=== PATIENT | male | born 1985 | race Caucasian/White ===

== ENCOUNTER 2024-10-08 18:35 | Emergency (ER) | payer MEDICAID, SELFPAY ==
[2024-10-08 19:18] VITALS: BP 128/78; PULSE 63; RESP 18; TEMP 37; O2SAT 98; BMI 28.0
--- NOTE | 2024-10-08 19:28 | EDRME_ITS ---
Rapid Medical Screening Exam [facility] Arrival date/time: 10/08/24 18:35 39M with history of asthma presents to ED with food bolus stuck in throat. Patient is unable to swallow or drink fluids. This has never happened before. Chief Complaint: Dental/Oral/Throat Vital signs: Vital Signs Temperature 98.6 F 10/08/24 19:18 Pulse Rate 63 10/08/24 19:18 Respiratory Rate 18 10/08/24 19:18 Blood Pressure 128/78 10/08/24 19:18 Pulse Oximetry (%) 98 10/08/24 19:18 Oxygen Delivery Method Room Air 10/08/24 19:18
--- NOTE | 2024-10-08 19:28 | XR_ITS ---
Examination: AP lateral soft tissue neck 2 views Technique one AP lateral soft tissue neck 2 views Exam date and time: October 08, 20242012 hrs. Indications: Difficulty swallowing today. Findings: No opaque foreign body No prevertebral soft tissue prominence or distention of the hypopharynx Epiglottis is not optimally visualized Impression: No opaque foreign body visualized
[2024-10-08 21:12] VITALS: BP 124/85; PULSE 60; RESP 16; TEMP 36.6; O2SAT 96
--- NOTE | 2024-10-08 21:18 | EDNOTE_ITS ---
ED Dental RME/HPI General Chief complaint: Dental/Oral/Throat Stated complaint: SOMETHING STUCK IN THROAT Time Seen by Provider: 10/08/24 21:15 Arrival date/time: 10/08/24 18:35 RME / HPI RME / HPI Narrative: 39-year-old male patient with significant history of asthma, came in for evaluation regarding a possible food stuck in his throat. Onset of symptoms few minutes prior to ER visit. Patient told me that he is unable to swallow or drink fluids. Denies any similar episode in the past. Denies any vomiting denies any gagging denies any other complaints. Related Data Previous Rx's ?Medication ?Instructions ?Recorded hydrocodone 5 mg-acetaminophen 325 1 tab PO BID PRN pain #10 tabs 11/14/21 mg tablet ibuprofen 800 mg tablet 800 mg PO TID PRN pain #30 tabs 11/14/21 Allergies Allergy/AdvReac Type Severity Reaction Status Date / Time loratadine Allergy Unknown Hives Verified 10/08/24 18:37 pseudoephedrine Allergy Unknown ITCHING Verified 10/08/24 18:37 Review of Systems Review of Systems Narrative Review of Systems: Review of system reviewed and within normal limits except mentioned in HPI ED Exam Narrative Physical exam: VITAL SIGNS: Reviewed. GENERAL APPEARANCE: Alert and interactive, follows commands, no acute distress, HEAD AND FACE: Non-traumatic. ENT: PERRL, pink conjunctivitis, eyelid no trauma, Mucous membrane moist. NECK: Supple, nontender, no nuchal rigidity. CHEST: No tenderness, no crepitus, no paradoxical movement, no retractions. LUNGS: Clear, well ventilated, symmetric, no rales, no wheezing, no ronchi, no stridor, good breath sounds bilaterally. HEART: Regular rate, regular rhythm, no murmur, no gallops. ABDOMEN: Soft, positive bowel sounds, nondistended, no guarding, nontender, no rebound, no masses, RECTAL: Deferred. GENITAL: Deferred. NEUROLOGICAL: Gross motor function intact sensory function intact, Appropriate for age. MUSCULOSKELETAL: low back nontender, full range of motion. EXTREMITIES: Nontender, full range of motion. SKIN: Color pink, dry, no rash, no lacerations, no abrasions, no contusions. LYMPHATICS: Deferred. Course Quality Measures none Orders Category Date Time Status Blood glucose [Bedside Blood Glucose] NOW Care 10/08/24 19:28 Active XR soft tissue neck Stat Exams 10/08/24 19:28 Taken Glucagon Inj Med 10/08/24 19:28 Discontinued 1 mg IM X1 ONE Vital Signs Vital signs: Vital Signs Temperature 98.6 F 10/08/24 19:18 Pulse Rate 63 10/08/24 19:18 Respiratory Rate 18 10/08/24 19:18 Blood Pressure 128/78 10/08/24 19:18 Pulse Oximetry (%) 98 10/08/24 19:18 Oxygen Delivery Method Room Air 10/08/24 19:18 Dental / Oral MDM Narrative MDM Narrative:: While waiting in the triage, patient was able to feel that the food is going down. Was able to drink liquid without any problem. X-ray of the soft tissue neck, came back unremarkable. Patient was advised to chew the food really good prior to swallowing. Patient data External records reviewed:: None Clinical information provided by:: patient Social determinants that could affect healthcare access:: none Patient has the following chronic illnesses:: asthma How is presenting disease/condition affected by chronic disease/condition?: uneffected by Evaluation data The following diagnostics were reviewed and interpreted by me:: radiology exam(s) Lab and/or radiology exams considered but not ordered:: None Interpretation Summary: X-ray of the soft tissue neck, came back unremarkable. Medications / Prescriptions Medications or Prescriptions considered but not ordered:: None Medication administrations:: Medication Administration History Discontinued Medications Glucagon (Glucagon Inj 1 Mg Vial) 1 mg IM X1 ONE Stop: 10/08/24 19:29 Glucagon was not given since patient spontaneously have complete resolution of foreign body sensation. Consultations Consultation(s) initiated? (list below): No Diagnosis Dental Differential Diagnosis: other (Foreign body sensation esophagus foreign body sensation throat, anxiety) Most likely diagnosis given after review of the tests above:: Foreign body sensation in esophagus Admission Indicated Admission indicated?: not indicated Admission Request Was there a request for admission?: No Disposition Plan Disposition Plan: Discharge Discharge Attestation Discharge Attestation: The patient and all family members were given an opportunity to ask questions and understood the discharge instructions. Discharge instructions specifically effects, indications for sooner follow up or return to the emergency department, and the expected course of current diagnosis. Patient condition: Stable Discharge Plan Plan Patient Disposition: HOME (Self Care) Disposition Comment: Stable Prescriptions/Referrals Prescriptions/Med Rec: No Action ibuprofen 800 mg tablet 800 mg PO TID PRN (Reason: pain) Qty: 30 0RF hydrocodone-acetaminophen 5-325 mg tablet 1 tab PO BID MDD 10 PRN (Reason: pain) Qty: 10 0RF Referrals: Brooke Floyd FNP [Primary Care Provider] - In 1 week Problem List Clinical Impression: Sensation of foreign body in esophagus Patient/Caregiver Discharge Instructions Discharge Activity: activity as tolerated Education Materials: Dysphagia: Exercises Additional Instructions: Thank you for the opportunity for serving you today. You are stable for discharged . You are advised to: Follow-up with your PCP in 1 to 2 days Return to ED for worsening of symptoms Increase oral fluids Make sure you chew your food well before swallowing Print Language: Kiswahili Stand Alone Forms: Shasha Award Info., Patient Portal Info Letter JOSETTE/ROHAN Supervising Physician JOSETTE/ROHAN Supervising Physician: MD Hugo
== END 2024-10-08 21:27 | disposition home or self-care (01) ==
PROVIDERS: Emergency Provider Emergency Medicine; PCP Nurse Practitioner Family
DX: R09.A2 Foreign body sensation, throat (principal)
CPT/HCPCS: 70360; 99283

== ENCOUNTER 2024-10-09 22:30 | Emergency (ER) | payer MEDICAID, SELFPAY ==
--- NOTE | 2024-10-09 22:35 | EDNOTE_ITS ---
ED Headache RME/HPI General Chief Complaint: Headache Stated Complaint: FACE PAIN Time Seen by Provider: 10/09/24 22:35 Arrival date/time: 10/09/24 22:30 RME / HPI RME / HPI Narrative: This section includes all my notes and documentations, including HPI, PE, and ED course. Dwaine Luis MD HPI: 39yo male accompanied by his friend presents to the ED for a chief complaint of right ear pain since yesterday. Patient states he was driving down from [place] yesterday when he was coming to the ED for a different complaint, reporting he developed sudden, severe right ear pain. Patient states he's since had loss of hearing to his right ear and intermittent loss of hearing in his left. He denies any other associated symptoms. No other complaints reported. ROS: All negative except as documented in HPI. Physical Exam: General: Alert and oriented. No acute distress when remaining still. Eyes: Conjunctivae and lids clear. ENT: No nasal congestion. Right eardrum is ruptured. Neck: Supple. Heart: RRR. Lungs: No respiratory distress. Good air movement. No rhonchi, wheezing, rales. Abdomen: Soft and nontender. Skin: Warm and dry. Neuro: Alert and oriented X 3. No diagnostic tests are indicated at this time. At this point, diagnoses include right TM rupture. Treatment here included Tylenol with codeine. Recommended more outpatient ENT care. Based on my best medical judgment, made decision no further evaluation or treatment indicated at this time. Patient understands and agrees to the discharge instructions customized and printed, see below. Discharge Instructions from Dr. Luis printed for you: 1. After exam, your right eardrum ruptured. Probably from sudden pressure [place] 2. It should heal in a month. 3. Ibuprofen and Tylenol with codeine for pain. 4. See a private doctor on 09/30/2024. Ask for a referral to see ENT specialist. 5. Seek immediate medical care with worsening or with any concerns. Dwaine Luis MD Related Data Previous Rx's ?Medication ?Instructions ?Recorded hydrocodone 5 mg-acetaminophen 325 1 tab PO BID PRN pain #10 tabs 11/14/21 mg tablet ibuprofen 800 mg tablet 800 mg PO TID PRN pain #30 tabs 11/14/21 acetaminophen 300 mg-codeine 30 mg 2 tab PO TID PRN pain #20 tabs 10/09/24 tablet Allergies Allergy/AdvReac Type Severity Reaction Status Date / Time loratadine Allergy Unknown Hives Verified 10/08/24 18:37 pseudoephedrine Allergy Unknown ITCHING Verified 10/08/24 18:37 Review of Systems Review of Systems Systems Reviewed: All systems reviewed, normal except as documented Past Medical History Past Medical History CARDIAC: Negative Cardiac Disorders or Congestive Heart Failure RESPIRATORY: Positive Chronic Obstructive Pulmonary Disease (COPD) and Asthma GENITOURINARY: Negative Renal Disease ENDOCRINE: Negative Diabetes Mellitus Type 1 or Diabetes Mellitus Type 2 HEMATOLOGIC: Negative Sickle Cell Disease Social History SMOKING STATUS: Light (< 1 pack/day) ED Exam Narrative Physical exam: As noted in HPI. Course Quality Measures none Orders Category Date Time Status ACETAMINOPHEN w/COD 300-30 [Tylenol w/Cod #3] Med 10/09/24 22:43 Discontinued 2 tab PO X1 ONE Vital Signs Vital signs: Vital Signs Temperature 97.6 F 10/09/24 22:39 Pulse Rate 84 10/09/24 22:39 Respiratory Rate 20 10/09/24 22:39 Blood Pressure 142/96 H 10/09/24 22:39 Pulse Oximetry (%) 98 10/09/24 22:39 Oxygen Delivery Method Room Air 10/09/24 22:39 Headache MDM Narrative MDM Narrative:: Scribe Attestation: 10/09/24 Davida Mason am scribing for and in the presence of Dr. Luis. Patient data External records reviewed:: [facility] previous records (Per chart review, patient was seen here yesterday for a foreign body in the esophagus.) Clinical information provided by:: patient and family Social determinants that could affect healthcare access:: none Patient has the following chronic illnesses:: COPD, asthma How is presenting disease/condition affected by chronic disease/condition?: uneffected by Evaluation data The following diagnostics were reviewed and interpreted by me:: other (specify) (none) Lab and/or radiology exams considered but not ordered:: none Interpretation Summary: none Medications / Prescriptions Medications or Prescriptions considered but not ordered:: none Medication administrations:: Medication Administration History Discontinued Medications Acetaminophen/Codeine Phosphate (Acetaminophen W/Cod 300-30 Tablet) 2 tab PO X1 ONE Stop: 10/09/24 22:44 two Tylenol #3 Consultations Consultation(s) initiated? (list below): No Diagnosis Differential diagnosis headache: other (ruptured eardrum, otitis media, eustachian tube dysfunction) Most likely diagnosis given after review of the tests above:: ruptured eardrum, right Admission Indicated Admission indicated?: not indicated Explain why admission is indicated or not indicated:: Admission criteria not met Admission Request Was there a request for admission?: No Disposition Plan Disposition Plan: Discharge Discharge Attestation Discharge Attestation: The patient and all family members were given an opportunity to ask questions and understood the discharge instructions. Discharge instructions specifically effects, indications for sooner follow up or return to the emergency department, and the expected course of current diagnosis. Patient condition: Stable Discharge Plan Plan Patient Disposition: HOME (Self Care) Prescriptions/Referrals Prescriptions/Med Rec: New acetaminophen-codeine 300-30 mg tablet 2 tab PO TID MDD 6 PRN (Reason: pain) Qty: 20 0RF No Action ibuprofen 800 mg tablet 800 mg PO TID PRN (Reason: pain) Qty: 30 0RF hydrocodone-acetaminophen 5-325 mg tablet 1 tab PO BID MDD 10 PRN (Reason: pain) Qty: 10 0RF Problem List Clinical Impression: Eardrum rupture, right Patient/Caregiver Discharge Instructions Discharge Activity: activity as tolerated Education Materials: ED PERFORATED TM Infected [Adult] Additional Instructions: Discharge Instructions from Dr. Luis printed for you: 1. After exam, your right eardrum ruptured. Probably from [place] 2. It should heal in a month. 3. Ibuprofen and Tylenol with codeine for pain. 4. See a private doctor on 09/30/2024. Ask for a referral to see ENT specialist. 5. Seek immediate medical care with worsening or with any concerns. Print Language: Cameroonian Stand Alone Forms: Shasha Award Info., Patient Portal Info Letter
[2024-10-09 22:39] VITALS: BP 142/96; PULSE 84; RESP 20; TEMP 36.4; O2SAT 98; BMI 24.2
[2024-10-09] MEDS: ACETAMINOPHEN w/COD 300-30 TABLET 2 TAB PO (23:05)
[2024-10-09 23:08] VITALS: BP 123/81; PULSE 83; RESP 16; TEMP 36.7; O2SAT 98
== END 2024-10-09 23:12 | disposition home or self-care (01) ==
LOC: SERX 23:18
PROVIDERS: Emergency Provider Emergency Medicine
DX: H72.91 Unspecified perforation of tympanic membrane, right ear (principal)
CPT/HCPCS: 99282; A9270

== ENCOUNTER 2025-01-10 10:32 | Emergency (ER) | payer MEDICAID, SELFPAY ==
[2025-01-10 10:32] VITALS: BMI 23.5
[2025-01-10 10:53] VITALS: BP 123/80; PULSE 65; RESP 16; TEMP 37.1; O2SAT 96; BMI 23.5
--- NOTE | 2025-01-10 11:03 | XR_ITS ---
Examination: PA lateral chest 2 views TECHNIQUE: Upright PA lateral chest 2 views Exam date and time: 07/03/2025 1117 hours INDICATIONS: Onset shortness of breath left-sided rib pain beginning 2 weeks ago FINDINGS: Normal heart size No pneumonia or pneumothorax No hemothorax Clavicles ribs appear intact IMPRESSION: No active disease
--- NOTE | 2025-01-10 11:03 | EKG_ITS ---
[facility] Test Date: 2025-01-10 Pat Name: JERRICA WILSON Department: Room: - Gender: Male [place]: : 1985 Requested By: Dimas Linn (MILLICENT) Order Number: [id number] Reading MD: Dimas Linn (MILLICENT) Measurements Intervals [place] Rate: 64 P: 37 IN: 164 QRS: 52 QRSD: 111 T: 52 QT: 364 QTc: 378 Interpretive Statements SINUS RHYTHM POSSIBLE RIGHT VENTRICULAR CONDUCTION DELAY [RSR (QR) IN V1/V2] No previous ECG available for comparison /store/S0/[id number].pdf
--- NOTE | 2025-01-10 11:04 | PD.EDRME ---
Rapid Medical Screening Exam E Arrival date/time: 01/10/25 10:32 39-year-old male presents the emergency department complaints of shortness of breath and chest pain Chief Complaint: Chest Pain Vital signs: Vital Signs Temperature 98.8 F 01/10/25 10:53 Pulse Rate 65 01/10/25 10:53 Respiratory Rate 16 01/10/25 10:53 Blood Pressure 123/80 01/10/25 10:53 Pulse Oximetry (%) 96 01/10/25 10:53
--- NOTE | 2025-01-10 11:59 | EDNOTE_ITS ---
ED Chest Pain RME/HPI General Chief Complaint: Chest Pain Stated Complaint: LEFT CHEST PAIN WITH PAINFUL BREATHING Time Seen by Provider: 01/10/25 11:58 Arrival date/time: 01/10/25 10:32 39 year old male present to emergency room with c/o of left chest pain with painful shortness of breath for 2 weeks . pt report hitting chest on steering wheel. Patient denies any significant past medical history, or illicit drug/alcohol abuse. LOCATION: Chest SEVERITY: Symptoms are described as being severe with limitations on activities of daily living CONTEXT: The patient is unable to identify any inciting events. DURATION/TIMING: The symptoms started approximately 14 days ago and have been constant since and have been progressive getting worse. ASSOCIATED SYMPTOMS: The patient is unable to identify any other associated symptoms. MODIFYING FACTORS: The patient is unable to identify any alleviating or aggr avating symptoms. PERTINENT ROS: no fevers, no cough, no pleuritic pain, no ripping or tearing sensations, denies any lower extremity edema and no unilateral swelling, no nausea,vomiting, diarrhea, no dizziness/headache no rash no loc/syncope episode no abd/back pain no dsyuria,urgency,frequency REVIEW OF SYSTEMS: See History of Present Illness - with the exception of those mentioned in the history of present illness, all other systems reviewed and reported as negative GENERAL: In general the patient is awake, interactive, in an emergency department gurney. HEAD/EYES/EARS/NOSE/THROAT: normo-cephalic, atraumatic, mucus membranes are moist, anicteric, palpebral conjunctiva is pink, trachea is midline. CARDIOVASCULAR: regular rate and regular rhythm, no murmurs, heart sounds are not distant, strong pulses in all four extremities that are equal and symmetric bilateral upper and lower extremities, normal capillary refill. CHEST/PULMONARY: normal chest rise and fall, good air movement, clear to auscultation bilaterally, normal inspiratory to expiratory ratios without evidence of respiratory distress. NECK: No midline/Paraspinal tenderness, no step off ROM/Strenght intact No Kernig and bruzinski sign. No trauma ABDOMEN: soft, not tender, no masses appreciated BACK: normal range of motion without pain. NEUROLOGICAL: cranio-facial features are symmetric, moves all four extremities equally without obvious limitations or weakness. EXTREMITY: no tenderness to palpation over the long bones or large joints of the bilateral upper and lower extremities, no joint swelling, no joint erythema, no signs of trauma, no unilateral leg swelling and no peripheral edema. SKIN: warm, dry, well-perfused, no jaundice, no rash, no telangiectasias or petechia. PSYCH: calm, cooperative, no evidence of psychosis or agitation RME / HPI RME / HPI narrative: 01/10/25 10:32 39-year-old male presents the emergency department complaints of shortness of breath and chest pain Related Data Previous Rx's ?Medication ?Instructions ?Recorded hydrocodone 5 mg-acetaminophen 325 1 tab PO BID PRN pa in #10 tabs 11/14/21 mg tablet ibuprofen 800 mg tablet 800 mg PO TID PRN pain #30 t abs 11/14/21 acetaminophen 300 mg-codeine 30 mg 2 tab PO TID PRN pa in #20 tabs 10/09/24 tablet Allergies Allergy/AdvReac Type Severity Reaction Status Date / Time loratadine Allergy Unknown Hives Verified 01/10/25 10:34 pseudoephedrine Allergy Unknown ITCHING Verified 01/10/25 10:34 Course Course Course Narrative: The patient presents with complaints of chest pain and shortness of breath. The patient denies a prior history of cardiac disease and reports no drug abuse. The presentation is concerning for potential cardiac or pulmonary pathology, but given the lack of significant past medical history and normal initial workup, other etiologies must be considered. A thorough physical examination was conducted, focusing on the chest, heart, and lungs. Initial diagnostic tests, including a complete set of labs, an electrocardiogram (EKG), and a chest X-ray, were all normal. Given these results, serious cardiac and pulmonary causes, such as acute myocardial infarction, pulmonary embolism, or significant pneumothorax, are less likely at this time. The patient?s symptoms could be related to musculoskeletal pain, gastrointest inal issues (e.g., gastroesophageal reflux disease), or anxiety/stress-related factors. Although the initial workup is reassuring, it is essential to continue to monitor the patient closely for any changes in symptoms. Plan: * Reassure the patient that initial cardiac and pulmonary concerns have been largely excluded. * HEART SCORE: 1, PERC Negative? * Recommend follow-up with their primary care provider or a specialist for further evaluation, especially if symptoms persist or worsen. * Symptom management as appropriate (e.g., anti-reflux medications or analgesics if musculoskeletal in origin). * Advise the patient to seek immediate care if symptoms change significantly, including any new or worsening chest pain, shortness of breath, or associated signs of instability. Quality Measures none Orders Category Date Time Status CT Screening NOW Care 01/10/25 13:20 Active EKG (ED ONLY) *Do not use* NOW Care 01/10/25 11:[address] angio chest Stat Exams 01/10/25 13:20 Completed EKG (ED Only) Stat Exams 01/10/25 11:03 Draft XR chest 2V Stat Exams 01/10/25 11:03 Completed CBC Stat Lab 01/10/25 11:34 Completed Comprehensive Metabolic Panel Stat Lab 01/10/25 11:34 Completed Troponin I Stat Lab 01/10/25 11:34 Completed Reevaluation(s) Reevaluation #1: pt is feeling better Vital Signs Vital signs: Vital Signs Temperature 98.8 F 01/10/25 10:53 Pulse Rate 65 01/10/25 10:53 Respiratory Rate 16 01/10/25 10:53 Blood Pressure 123/80 01/10/25 10:53 Pulse Oximetry (%) 96 01/10/25 10:53 Procedures -ED EKG Interpretation #1: Date of EK01/10/25 Rate: 64 Interpretation: Reviewed by me EKG Impression: Normal sinus rhythm, No acute ST-T changes, No ectopy, No ischemic changes, Normal QRS and Normal intervals Chest Pain Patient data External records reviewed:: [facility] previous records Clinical information provided by:: patient Social determinants that could affect healthcare access:: none Patient has the following chronic illnesses:: n/a How is presenting disease/condition affected by chronic disease/condition?: no chronic disease Evaluation data The following diagnostics were reviewed and interpreted by me:: lab results, radiology exam(s) and EKG tracing(s) Lab and/or radiology exams considered but not ordered:: n/a Interpretation Summary: cbc: No elevated wbc no anemia no shift cmp: no dehydration on renal/liver failure Trop: Negative CXR:Normal heart size No pneumonia or pneumothorax No hemothorax Clavicles ribs appear intact IMPRESSION: No active disease CTA: No thoracic aortic aneurysmal dilatation Pulmonary artery segments are not enlarged No pulmonary artery filling defects No paratracheal tracheobronchial or bronchopulmonary adenopathy No pneumonia, pulmonary edema or pleural disease No visualized liver or splenic lesion No gallstones No pancreatic or adrenal mass IMPRESSION: Negative for pulmonary artery emboli No mediastinal lymphadenopathy No pneumonia or pulmonary edema or pleural disease Medications / Prescriptions Medications or Prescriptions considered but not ordered:: n/a Medication administrations:: n/a Consultations Consultation(s) initiated? (list below): No Diagnosis Chest Pain Differential Diagnosis: fracture of rib, pneumothorax, atypical chest pain, st elevation myocardial infarction, costochondritis, chest pain and other (PE, anxiety, muscular/contusion ) Most likely diagnosis given after review of the tests above:: chest wall pain Admission Indicated Admission indicated?: not indicated Admission Request Was there a request for admission?: No Disposition Plan Disposition Plan: Discharge Discharge Attestation Discharge Attestation: The patient and all family members were given an opportunity to ask questions and understood the discharge instructions. Discharge instructions specifically effects, indications for sooner follow up or return to the emergency department, and the expected course of current diagnosis. Patient condition: Stable Discharge Plan Plan Patient Disposition: HOME (Self Care) Health Concerns: Follow with PMD as directed Take tylenol or motrin as need Return to ED if sx worsen Prescriptions/Referrals Prescriptions/Med Rec: No Action ibuprofen 800 mg tablet 800 mg PO TID PRN (Reason: pain) Qty: 30 0RF hydrocodone-acetaminophen 5-325 mg tablet 1 tab PO BID MDD 10 PRN (Reason: pain) Qty: 10 0RF acetaminophen-codeine 300-30 mg tablet 2 tab PO TID MDD 6 PRN (Reason: pain) Qty: 20 0RF Referrals: No Primary/Family,Physician [Primary Care Provider] - In 1 week Problem List Clinical Impression: Chest pain Patient/Caregiver Discharge Instructions Education Materials: ED Chest Pain, Uncertain Cause Print Language: Welsh Stand Alone Forms: Shasha Award Info., Patient Portal Info Letter
[2025-01-10 12:05] LABS: Basophils % (Auto) 0 % (0-2.5); Eosinophils # (Auto) 0.1 Thou/mm3 (0.0-0.5); Eosinophils % (Auto) 1 % (0-10); Hemoglobin 16.1 g/dL (13.5-16.0); Immature Granulocytes % (Auto) 0 % (0-0); Immature Granulocytes Auto 0.03 Thou/mm3 (0.00-0.00); Lymphocytes # (Auto) 2.6 Thou/mm3 (1.0-4.8); Lymphocytes % (Auto) 25 % (10-50); Mean Corpuscular HGB Conc 35.8 g/dl (31.0-37.0); Mean Corpuscular Hemoglobin 31.3 pg (25.0-35.0); Mean Corpuscular Volume 87 fL (80-100); Monocytes # (Auto) 0.6 Thou/mm3 (0.0-0.8); Monocytes % (Auto) 5 % (0-12); Neutrophils # (Auto) 6.8 Thou/mm3 (1.8-7.7); Neutrophils % (Auto) 68 % (37-80); Nucleated Red Blood Cell % 0 /100 WBC (0); Platelet Count 332 Thou/mm3 (140-440); RDW Standard Deviation 39.9 fL (35.1-43.9); Red Blood Count 5.15 Miln/mm3 (4.50-5.90); White Blood Count 10.1 Thou/mm3 (3.8-10.6)
[2025-01-10 12:38] LABS: Alanine Aminotransferase 26 U/L (10-49); Albumin, Serum 4.9 gm/dL (3.5-5.0); Albumin/Globulin Ratio 2.1 (1.2-2.2); Alkaline Phosphatase 77 U/L (46-116); Anion Gap 9 (7-16); Aspartate Amino Transferase 25 U/L (0-34); BUN/Creatinine Ratio 11 Ratio (12-20); Bilirubin,Total 0.7 mg/dL (0.3-1.2); Blood Urea Nitrogen 11 mg/dL (9-23); Calcium 10.6 mg/dL (8.3-10.6); Calcium (Corrected) 10.6 mg/dL (8.5-10.1); Carbon Dioxide 27.2 mMol/L (20.0-31.0); Chloride 106 mMol/L (98-107); Estimated Creatinine Clearance 91.8 mL/min (>60); Globulin 2.3 gm/dL (2.3-3.5); Glucose 72 mg/dL (74-106); Osmolality,Calculated 281 (275-295); Potassium 4.2 mMol/L (3.4-5.1); Sodium 142 mMol/L (136-145); Total Protein 7.2 gm/dL (5.7-8.2); Troponin I < 0.002 ng/mL (0.0-0.045); eGFR > 60 See Note
--- NOTE | 2025-01-10 13:20 | XR_ITS ---
Examination: CTA chest with intravenous contrast 2-D reconstructions 3-D reconstructions, vascular Date and time of exam: January 10, 2025 1432 hours Comparison March 09, 2022 INDICATIONS: Shortness of breath beginning 2 weeks ago CTDI: vol (mGy) 7.01 DLP: (mGycm) 282 Technique: Multiple axial sections of the thorax have been obtained. 3 mm slice thickness, from below the hemidiaphragms to above the apices of the lungs. Mediastinal and lung density settings have been obtained. 2-D sagittal and coronal reconstructions. 3-D angiographic renderings, 3-D volume renderings, 3D post processing, vascular maximum intensity projections obtained. Contrast administered is 100 cc [id number]-[id number]. Low dose protocols were performed. One or more of the following dose reduction techniques were used; automated exposure control, adjustment of the mA and/or KV according to patient size, use of iterative reconstruction technique. Findings: No thoracic aortic aneurysmal dilatation Pulmonary artery segments are not enlarged No pulmonary artery filling defects No paratracheal tracheobronchial or bronchopulmonary adenopathy No pneumonia, pulmonary edema or pleural disease No visualized liver or splenic lesion No gallstones No pancreatic or adrenal mass IMPRESSION: Negative for pulmonary artery emboli No mediastinal lymphadenopathy No pneumonia or pulmonary edema or pleural disease
== END 2025-01-10 15:22 | disposition home or self-care (01) ==
PROVIDERS: Nurse Practitioner Primary Care; Emergency Provider Emergency Medicine
DX: R07.9 Chest pain, unspecified (principal)
CPT/HCPCS: 36415; 71046; 71275; 80053; 84484; 85025; 93005; 99285; A4649; Q9967